=== PATIENT | female | born 1945 | race Caucasian/White ===

== ENCOUNTER 2016-10-06 21:02 | Emergency (ER) | payer MEDICARE, OTHER ==
[2016-10-06 21:10] VITALS: BP 130/49
[2016-10-06] MEDS ORDERED: Sodium Chloride 0.9% 10 ML Syringe FLUSH PRN (21:45)
[2016-10-06] MEDS ORDERED: Aspirin 81 MG Tab.Chew PO ONE (21:58)
[2016-10-06] MEDS ORDERED: Alum Hydrox/Mag Hydrox/Simeth 30 ML, Lidocaine 2% 15 ML PO ONE ×2 (21:59)
[2016-10-06] MEDS ORDERED: Nitroglycerin/D5W 25 MG/250 ML BOTTLE IV SCH (22:00)
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
[2016-10-06] MEDS ORDERED: Sodium Chloride 0.9% 1,000 ML ONE (22:17)
[2016-10-06] MEDS ORDERED: Acetaminophen 325 MG Tab PO ONE (22:58)
--- NOTE | 2016-10-07 07:08 | CR ---
Chest: Portable view of the chest was obtained. Comparison: Previous chest x-ray of 04/14/16. Heart is mildly enlarged. Pulmonary vessels are slightly increased. Lungs otherwise are clear. Bony structures are grossly intact. Impression: 1. Mild cardiomegaly. 2. Slight pulmonary vascular congestion, possibly chronic. Diagnostic code #3
== END 2016-10-07 01:21 | disposition home or self-care (01) ==
LOC: JD.ED 21:02
DX: R07.89 Other chest pain (principal); E78.00 Pure hypercholesterolemia, unspecified; E03.9 Hypothyroidism, unspecified; I10 Essential (primary) hypertension; E11.9 Type 2 diabetes mellitus without complications; Z88.8 Allergy status to other drugs, medicaments and biological substances; Z91.041 Radiographic dye allergy status; Z79.82 Long term (current) use of aspirin; Z79.899 Other long term (current) drug therapy; Z90.49 Acquired absence of other specified parts of digestive tract; Z88.5 Allergy status to narcotic agent; Z90.710 Acquired absence of both cervix and uterus
CPT/HCPCS: 36415; 71010; 80053; 83880; 84484; 85025; 85610; 86140; 93005; 96365; 96366; 99285; A9270; J7050; 99284

== ENCOUNTER 2016-10-09 20:26 | Emergency (ER) | payer MEDICARE, OTHER ==
[2016-10-09] MEDS ORDERED: Sodium Chloride 0.9% 10 ML Syringe FLUSH PRN (21:16)
[2016-10-09] MEDS ORDERED: Sodium Chloride 0.9% 500 ML IV ONE (21:18)
[2016-10-09] MEDS ORDERED: Piperacillin/Tazobactam 4.5 GM in Sodium Chloride 0.9% 100 ML IV ONE (22:12)
[2016-10-09] MEDS ORDERED: Aspirin 81 MG Tab.EC PO ONE (22:58)
[2016-10-09] MEDS ORDERED: Aspirin 81 MG Tab.Chew PO ONE (22:59)
[2016-10-09] MEDS ORDERED: Aspirin 81 MG Tab.Chew ONE (23:03)
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
[2016-10-09] MEDS ORDERED: Heparin Sodium 5,000 Units/ML Vial IVPUSH ONE (23:08)
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
[2016-10-09] MEDS ORDERED: Heparin Sodium/D5W 25,000 UNITS/500 ML BAG IV SCH (23:15)
[2016-10-09] MEDS ORDERED: Heparin Sodium/D5W 500 ML ONE (23:24)
[2016-10-10 00:19] VITALS: BP 117/67
--- NOTE | 2016-10-10 08:04 | CR ---
Chest: Portable view of the chest was obtained. Comparison: Previous chest x-ray of 10/06/16. Heart is enlarged. Mild pulmonary vascular congestion is seen which appears stable. Lungs otherwise are clear. Bony structures are grossly intact. Impression: 1. Cardiomegaly with mild chronic pulmonary vascular congestion. Diagnostic code #3
== END 2016-10-09 23:42 ==
LOC: JD.ED 20:26
DX: I24.9 Acute ischemic heart disease, unspecified (principal); L03.311 Cellulitis of abdominal wall; I10 Essential (primary) hypertension; E78.00 Pure hypercholesterolemia, unspecified; E11.9 Type 2 diabetes mellitus without complications; E03.9 Hypothyroidism, unspecified; E66.9 Obesity, unspecified; R06.02 Shortness of breath; Z95.5 Presence of coronary angioplasty implant and graft; Z90.49 Acquired absence of other specified parts of digestive tract; Z90.710 Acquired absence of both cervix and uterus; Z98.890 Other specified postprocedural states; Z79.4 Long term (current) use of insulin; Z79.899 Other long term (current) drug therapy; Z88.6 Allergy status to analgesic agent; Z88.8 Allergy status to other drugs, medicaments and biological substances; Z91.041 Radiographic dye allergy status; Z68.43 Body mass index [BMI] 50.0-59.9, adult
CPT/HCPCS: 36415; 71010; 80053; 82962; 83605; 83880; 84484; 85025; 85730; 86140; 87040; 87186; 93005; 96361; 96365; 96375; 99285; A9270; J1644; J2543; J7030; J7040; J7050

== ENCOUNTER 2017-07-19 13:22 | Emergency (ER) | payer MEDICARE, OTHER ==
[2017-07-19 13:35] VITALS: BP 144/48
[2017-07-19] MEDS ORDERED: Albuterol/Ipratropium 3.0-0.5 MG/3 ML Neb Soln NEB ONE (13:38)
[2017-07-19] MEDS ORDERED: Sodium Chloride 0.9% 10 ML Syringe FLUSH PRN (13:38)
[2017-07-19] MEDS ORDERED: Albuterol 0.083% 2.5 MG/3 ML Neb Soln NEB ONE (15:11)
[2017-07-19] MEDS ORDERED: Furosemide 40 MG/4 ML VIAL IVPUSH ONE (15:15)
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
--- NOTE | 2017-07-19 15:25 | CR ---
Chest: Frontal view of the chest was obtained. Comparison: Prior chest x-ray of 10/09/16. Heart size is enlarged. Pulmonary vessels are slightly congested which appears similar to previous exam. Lungs otherwise are clear with no acute parenchymal densities being seen. Bony structures are grossly intact. Impression: 1. Mild cardiomegaly with mild pulmonary vascular congestion. These findings are stable from prior chest x-ray. Diagnostic code #2
== END 2017-07-19 16:18 | disposition home or self-care (01) ==
LOC: JD.ED 13:22
DX: J40 Bronchitis, not specified as acute or chronic (principal); I50.43 Acute on chronic combined systolic (congestive) and diastolic (congestive) heart failure; E78.00 Pure hypercholesterolemia, unspecified; I10 Essential (primary) hypertension; E11.9 Type 2 diabetes mellitus without complications; E03.9 Hypothyroidism, unspecified; E66.9 Obesity, unspecified; Z90.49 Acquired absence of other specified parts of digestive tract; Z88.5 Allergy status to narcotic agent; Z88.8 Allergy status to other drugs, medicaments and biological substances; Z79.84 Long term (current) use of oral hypoglycemic drugs; Z79.899 Other long term (current) drug therapy; Z90.710 Acquired absence of both cervix and uterus
CPT/HCPCS: 36415; 71045; 80053; 85025; 86140; 87040; 87804; 93005; 94640; 96374; 99285; J1940; J7050; 93010; 99284-25

== ENCOUNTER 2023-06-11 04:21 | Emergency (ER) | payer MEDICARE, OTHER ==
[2023-06-11 04:42] VITALS: BP 150/89; PULSE 78
== END 2023-06-11 05:00 | disposition home or self-care (01) ==
LOC: JD.ED 04:21
DX: B35.6 Tinea cruris (principal); E78.00 Pure hypercholesterolemia, unspecified; I10 Essential (primary) hypertension; E03.9 Hypothyroidism, unspecified; E11.9 Type 2 diabetes mellitus without complications; E66.9 Obesity, unspecified; Z95.5 Presence of coronary angioplasty implant and graft; Z95.0 Presence of cardiac pacemaker; Z79.82 Long term (current) use of aspirin; Z79.899 Other long term (current) drug therapy; Z88.5 Allergy status to narcotic agent; Z88.8 Allergy status to other drugs, medicaments and biological substances; Z91.041 Radiographic dye allergy status
CPT/HCPCS: 99282; 99283

== ENCOUNTER 2024-04-05 14:09 | Inpatient (IN) | payer MEDICARE, OTHER ==
[2024-04-05 15:43] LABS: BASOPHILS PERCENT AUTO 0.1 % (0.0-1.0); EOSINOPHILS PERCENT AUTO 0.4 % (0.0-6.0); HEMATOCRIT 41.3 % (37.0-47.0); HEMOGLOBIN 13.9 gm/dl (12.0-16.0); IMMATURE GRAN ABSOLUTE AUTO 0.03 K/mm3 (0.00-0.05); IMMATURE GRAN PERCENT AUTO 0.3 % (0.0-0.4); LYMPHOCYTES ABSOLUTE AUTO 0.7 K/mm3 (1.0-4.8); LYMPHOCYTES PERCENT AUTO 6.6 % (24.0-44.0); MEAN CORPUSCULAR HEMOGLOBIN 32.3 pg (28.0-32.0); MEAN CORPUSCULAR HGB CONC 33.7 g/dl (32.0-36.0); MEAN PLATELET VOLUME 9.3 fl (9.4-12.3); MONOCYTES ABSOLUTE AUTO 1.1 K/mm3 (0.0-0.8); MONOCYTES PERCENT AUTO 10.2 % (0.0-8.0); NEUTROPHILS PERCENT AUTO 82.4 % (41.0-71.0); PLATELET COUNT,PLT 175 K/mm3 (150-400); WHITE BLOOD CELL COUNT,WBC 10.86 K/mm3 (3.9-11.3)
[2024-04-05 16:21] LABS: A/G RATIO 0.6 (1-2); ALBUMIN 2.9 g/dl (3.4-5.0); ANION GAP 12.7 (5-15); BILIRUBIN TOTAL 1.2 mg/dL (0.2-1.0); CALCIUM 8.8 mg/dL (8.5-10.1); CREATININE 1.4 mg/dL (0.55-1.02); EST CRCL DRUG DOSING (CG) 23.02 mL/min; POTASSIUM,K 4.7 mEq/L (3.5-5.1); PROTEIN TOTAL,TP 7.6 g/dl (6.4-8.2)
[2024-04-05] MEDS ORDERED: 50% Dextrose in Water 50 ML Syringe IVPUSH PRN (17:15)
[2024-04-05] MEDS: Sodium Chloride 0.9% 1,000 ML IV SCH (17:43)
[2024-04-05] MEDS: Insulin Regular, Human 100 Units/ML 3 ML Vial SUBCUT SCH (19:03)
[2024-04-05] MEDS: Apixaban 5 MG Tab PO SCH (20:13)
[2024-04-05] MEDS: Insulin Glargine,Human Rec. Analog 100 Units/ML 3 ML Pen SUBCUT SCH (20:14)
[2024-04-05 22:17] LABS: APPEARANCE,URINE CLEAR (Clear); BILIRUBIN,URINE NEGATIVE (Negative); COLOR,URINE YELLOW (Yellow); GLUCOSE,URINE NEGATIVE (Negative); KETONES,URINE NEGATIVE (Negative); LEUKOCYTE ESTERASE,URINE NEGATIVE (Negative); NITRITE,URINE NEGATIVE (Negative); OCCULT BLOOD,URINE NEGATIVE (Negative); PROTEIN,URINE TRACE (Negative)
[2024-04-05 22:39] LABS: BACTERIA,URINE FEW /hpf (FEW); HYALINE CASTS,URINE 0-5 /lpf (0-5); MUCUS,URINE FEW /hpf (FEW); RBC,URINE 0-5 /hpf (0-5); WBC,URINE 0-5 /hpf (0-5)
[2024-04-06] MEDS ORDERED: Ondansetron 4 MG/2 ML SDV IV PRN (07:41)
[2024-04-06] MEDS ORDERED: Docusate Sodium 100 MG Cap PO PRN (07:41)
[2024-04-06] MEDS ORDERED: Polyethylene Glycol 3350 Powder 17 GM Packet PO PRN (07:41)
[2024-04-06] MEDS: Insulin Lispro 100 Unit/ML 3 ML KwikPen SUBCUT SCH (07:46)
[2024-04-06 07:55] LABS: A/G RATIO 0.6 (1-2); ALBUMIN 2.4 g/dl (3.4-5.0); ANION GAP 6.1 (5-15); BILIRUBIN TOTAL 1.5 mg/dL (0.2-1.0); CALCIUM 8.4 mg/dL (8.5-10.1); EST CRCL DRUG DOSING (CG) 32.23 mL/min; POTASSIUM,K 4.1 mEq/L (3.5-5.1); PROTEIN TOTAL,TP 6.8 g/dl (6.4-8.2)
[2024-04-06] MEDS: Metoprolol Succinate 25 MG Tab.ER PO SCH (08:24)
[2024-04-06] MEDS: Isosorbide Mononitrate 30 MG Tab.ER PO SCH (08:24)
[2024-04-06] MEDS: Acetaminophen 325 MG Tab PO PRN (11:00)
[2024-04-06 12:09] VITALS: PULSE 65
[2024-04-06 16:30] VITALS: BP 106/70
[2024-04-06] MEDS ORDERED: Sertraline 50 MG Tab PO SCH (21:00)
== END 2024-04-06 16:37 | disposition home or self-care (01) | DRG 683 ==
LOC: JD.ED 14:09 → JD.MS 17:16 → OBSVTOIN 17:17
PROVIDERS: ADMIT Internal Medicine; ATTEND Internal Medicine
DX: N17.9 Acute kidney failure, unspecified (principal); I10 Essential (primary) hypertension; J96.11 Chronic respiratory failure with hypoxia; E66.9 Obesity, unspecified; L03.90 Cellulitis, unspecified; Z68.43 Body mass index [BMI] 50.0-59.9, adult; E66.01 Morbid (severe) obesity due to excess calories; Z91.041 Radiographic dye allergy status; Z79.82 Long term (current) use of aspirin; E11.9 Type 2 diabetes mellitus without complications; J44.9 Chronic obstructive pulmonary disease, unspecified; I25.10 Atherosclerotic heart disease of native coronary artery without angina pectoris; I27.20 Pulmonary hypertension, unspecified; I12.9 Hypertensive chronic kidney disease with stage 1 through stage 4 chronic kidney disease, or unspecified chronic kidney disease; N18.9 Chronic kidney disease, unspecified; G43.909 Migraine, unspecified, not intractable, without status migrainosus; M15.0 Primary generalized (osteo)arthritis; E78.00 Pure hypercholesterolemia, unspecified; E03.9 Hypothyroidism, unspecified; Z90.710 Acquired absence of both cervix and uterus; Z98.890 Other specified postprocedural states; Z90.49 Acquired absence of other specified parts of digestive tract; Z88.8 Allergy status to other drugs, medicaments and biological substances; Z95.5 Presence of coronary angioplasty implant and graft; Z79.899 Other long term (current) drug therapy
CPT/HCPCS: 36415; 71045; 71045-26; 73030-26-RT; 73030-RT; 80053; 81001; 82947; 83735; 85025; 93005; 93971-26-LT; 93971-LT; 94760; 97112-GP; 97161-GP; 97530-GP; 99285; A9270-GY; J1815; J1815-GY; J7030